=== PATIENT | female | born 1990 | race Caucasian/White ===

== ENCOUNTER 2020-06-21 09:04 | Emergency (ER) | payer SELFPAY ==
[2020-06-21] MEDS ORDERED: Ibuprofen 800 MG TAB ONE (09:44)
[2020-06-21 09:55] LABS: #Basophils 0.1 thou/uL (0.0-0.2); #Eosinphils 0.5 thou/uL (0.0-0.7); #Monocytes 0.8 thou/uL (0.11-0.59); #Neutrophils 3.8 thou/uL (1.40-6.50); %Basophils 1.4 % (0.0-1.0); %Eosinophils 6.7 % (0.0-10.0); %Lymphocytes 27.6 % (21.0-51.0); %Monocytes 10.6 % (0.0-10.0); %Neutrophils 53.7 % (42.0-75.0); Hemoglobin 13.6 g/dL (12.0-16.0); Mean Corpuscular HGB CONC 32.7 g/dL (32.0-36.0); Mean Corpuscular Hemoglobin 32.6 pg (27.0-31.0); Mean Corpuscular Volume 99.6 fL (78.0-98.0); Mean Platelet Volume 6.9 fL (7.4-10.4); Platelet Count 362 thou/uL (130-400); RBC Distribution Width 11.7 % (11.5-14.5); Red Blood Cell (RBC) Count 4.18 mill/uL (4.20-5.40); White Blood Cell (WBC) Count 7.1 thou/uL (4.8-10.8)
--- NOTE | 2020-06-21 10:45 | ULT ---
Exam: Transabdominal and endovaginal pelvic ultrasound HISTORY:Evaluate for retained products of conception. Vaginal bleeding x1 month. Elective COMPARISON: None TECHNIQUE: Transabdominal and endovaginal imaging of the pelvis is performed. Ovaries are interrogate d with grayscale, color flow, Doppler imaging and spectral wave form analysis FINDINGS: Uterus: No myometrial masses. Uterus measurin.6 x 4.9 x 5.4 cm. Endometrium: Thickened and slightly heterogeneous Endometrium diameter: 1.8 cm. . Free fluid: None Right ovary: Normal echotexture Right ovary measurement: 4.1 x 2.4 x 2.6 cm Left ovary: Normal echotexture. Left ovary measurements: 2.8 x 1.6 x 3.1 cm Ovarian Doppler: There is vascular flow to the left and right ovary. IMPRESSION: 1. Heterogeneous and thickened endometrium. Correlate with serum beta hCG for retained products of co nception.
[2020-06-21 11:17] LABS: Bilirubin Negative (Negative); Blood, Urine 3+ (Negative); Clarity Clear (Clear); Glucose, Urine (Dipstick) Normal (Negative); Ketone, Urine Negative (Negative); Leukocyte Negative Leu/uL (Negative); Nitrite Negative (Negative); Protein, Urine (Dipstick) Negative (Neg-Trace); RBC/HPF 0-3 HPF (0-3); Specific Gravity, Urine 1.006 (1.002-1.036); Squamous Epithelial 0-3 HPF (0-3); Urobilinogen Normal mg/dL (Less than 2); WBC/HPF 0-3 HPF (0-3); pH, Urine 5.5 (5.0-9.0)
[2020-06-21 11:19] LABS: Bacteria/HPF Rare-Few HPF (None Seen)
[2020-06-21 11:20] LABS: Pregnancy Test - Urine (BHCG) Negative (Negative); Pregu Control Background? CLEAR/WHITE (CLR/WHITE); Pregu Control Bar Appear? YES (CONTROL BAR); Specific Gravity 1.006 (1.002-1.036)
== END 2020-06-21 12:06 | disposition home or self-care (01) ==
LOC: ERS 09:04
DX: O03.6 Delayed or excessive hemorrhage following complete or unspecified spontaneous abortion (principal); Z71.6 Tobacco abuse counseling; F32.9 Major depressive disorder, single episode, unspecified
CPT/HCPCS: 36415; 76856; 81003; 81015; 81025; 84702; 85025; 86900; 86901; 99406

== ENCOUNTER 2020-12-16 04:21 | Emergency (ER) | payer SELFPAY ==
[2020-12-16 04:43] LABS: Bacteria/HPF None Seen HPF (None Seen); Bilirubin Negative (Negative); Blood, Urine 3+ (Negative); Clarity Turbid (Clear); Glucose, Urine (Dipstick) Normal (Negative); Ketone, Urine Negative (Negative); Leukocyte Negative Leu/uL (Negative); Nitrite Negative (Negative); Pregnancy Test - Urine (BHCG) Negative (Negative); Pregu Control Background? CLEAR/WHITE (CLR/WHITE); Pregu Control Bar Appear? YES (CONTROL BAR); Protein, Urine (Dipstick) Negative (Neg-Trace); RBC/HPF Greater than 50 HPF (0-3); Squamous Epithelial 0-3 HPF (0-3); Urobilinogen Normal mg/dL (Less than 2); pH, Urine 5.5 (5.0-9.0)
[2020-12-16 05:55] LABS: #Basophils 0.1 thou/uL (0.0-0.2); #Eosinphils 0.1 thou/uL (0.0-0.7); #Lymphocytes 2.7 thou/uL (1.20-3.40); #Monocytes 0.8 thou/uL (0.11-0.59); #Neutrophils 6.8 thou/uL (1.40-6.50); %Basophils 1.2 % (0.0-1.0); %Eosinophils 1.3 % (0.0-10.0); %Lymphocytes 25.4 % (21.0-51.0); %Monocytes 7.3 % (0.0-10.0); %Neutrophils 64.8 % (42.0-75.0); Hemoglobin 13.8 g/dL (12.0-16.0); Mean Corpuscular HGB CONC 33.1 g/dL (32.0-36.0); Mean Corpuscular Hemoglobin 33.1 pg (27.0-31.0); Mean Corpuscular Volume 99.8 fL (78.0-98.0); Mean Platelet Volume 6.6 fL (7.4-10.4); Platelet Count 395 thou/uL (130-400); RBC Distribution Width 10.7 % (11.5-14.5); Red Blood Cell (RBC) Count 4.18 mill/uL (4.20-5.40); White Blood Cell (WBC) Count 10.5 thou/uL (4.8-10.8)
[2020-12-16 06:06] LABS: INR-International Normal Ratio 1.1; PTT 28.2 sec (22.9-36.1); Prothrombin Time 14.3 sec (12.0-14.7)
[2020-12-16 06:17] LABS: ALT (SGPT) 56 U/L (8-55); AST (SGOT) 58 U/L (5-34); Albumin 4.6 g/dL (3.5-5.0); Alkaline Phosphatase 62 U/L (40-110); Anion Gap 15 mmol/L (10-20); BUN (Urea Nitrogen) 8 mg/dL (7.0-18.7); Bilirubin, Total 0.3 mg/dL (0.2-1.2); Calc. Creatinine Clearance 0 mL/min (70-130); Calcium 8.9 mg/dL (7.8-10.44); Carbon Dioxide 27 mmol/L (22-29); Chloride 105 mmol/L (98-107); Globulin 2.9 g/dL (2.4-3.5); Glucose 94 mg/dL (70-105); Potassium 4.7 mmol/L (3.5-5.1); Protein, Total 7.5 g/dL (6.0-8.3); Sodium 142 mmol/L (136-145)
--- NOTE | 2020-12-16 08:17 | CT ---
PRELIMINARY REPORT/DIRECT RADIOLOGY/EMERGENCY AFTER HOURS PROCEDURE: EXAM: CT Abdomen and Pelvis with Intravenous Contrast CLINICAL HISTORY: 30-year-old female patient presents to the ER with complaint of vaginal pain, vagin al bleeding, vaginal swelling that began this morning around 4 AM when she woke up. The patient reports that she started having cramping lower abdominal pain and when she went to the bathroom she n oticed blood when she urinated and then started passing clots. The patient states that her left labia is swollen over 4 times its normal size. Patient denies any injury, recent intercourse, nausea, vomiting, diarrhea, urinary complaints, vaginal discharge, or any other symptoms at this time. No history of similar episodes in the past. TECHNIQUE: Axial computed tomography images of the abdomen and pelvis with intravenous contrast. CONTRAST: With; ISOVUE 370,80mL COMPARISON: None provided. FINDINGS: LUNG BASES: No basilar airspace consolidation or pleural effusion. LIVER: Unremarkable. GALLBLADDER AND BILE DUCTS: Unremarkable. No calcified stone. No ductal dilation. PANCREAS: Unremarkable. SPLEEN: The spleen is poorly visualized although thought to be present along the left upper abdomen ( series 2, image 26), it is difficult to delineate from adjacent bowel. There is a small ovoid heterogeneous lesion within the left splenic fossa measuring approximately 1.7 cm which likely repres ents a small residual splenule. ADRENAL GLANDS: Unremarkable. KIDNEYS, URETERS, AND BLADDER: Unremarkable. No hydronephrosis or nephrolithiasis. No ureteral or thomas dder calculi. STOMACH AND BOWEL: No obstruction. No wall thickening. No CT evidence of colitis or acute diverticuli tis. APPENDIX: No CT evidence for appendicitis. PERITONEUM: No free fluid. No free air. LYMPH NODES: No lymphadenopathy. REPRODUCTIVE: Normal CT appearance of the uterus and ovaries. There is prominent soft tissue fat str anding along the lower central pelvis with extension to the labia majora. There is asymmetric enlargement of the left labia majora without discrete visualized abscess or fluid collection. Single punctate focus of air is present (series 2, image 87), likely interposed between the labial folds. VASCULATURE: No aortic aneurysm. BONES: No fracture or suspicious osseous abnormality. There are degenerative changes along the lumbo sacral junction. ABDOMINAL WALL AND SOFT TISSUES: Soft tissue fat stranding, as detailed above. No soft tissue mass.. IMPRESSION: Soft tissue fat stranding along the central pelvis with extension along the labia majora with asymmetric enlargement of the left labia majora. Overall these findings are favored to represent an infectious or traumatic process although no discrete abscess or fluid collection is iden tified. Alternative considerations for vascular or malignant etiologies are also possible thought to be significantly less likely. Recommend [employer] consultation. ELECTRONICALLY SIGNED BY: Garry Nascimento MD Dec 16, 2020 6:55:44 AM [employer] FINAL REPORT CT ABDOMEN AND PELVIS WITH CONTRAST: History: Vaginal pain. Comparison: None. Findings/impression: The findings and impression are concordant with the initial report. Findings are concerning for left labial cellulitis with phlegmonous changes within the left labia and possible developing abscess of the left Bartholin gland. Small punctate focus of gas in the left labia sagittal image 102. Incidentally normal spleen is absent with small volume residual splenic tissue within the splenic fos sa. Appendix is normal. Advanced for age degenerative changes at L5-S1 disc space. Transcribed Date/Time: 12/16/2020 8:27 AM
[2020-12-16] MEDS ORDERED: Iopamidol-370 76% 500 ML 1 ML ONE (11:31)
== END 2020-12-16 07:31 | disposition home or self-care (01) ==
LOC: ERS 04:21
DX: N90.89 Other specified noninflammatory disorders of vulva and perineum (principal); F17.290 Nicotine dependence, other tobacco product, uncomplicated
CPT/HCPCS: 74177; 80053; 81003; 81015; 81025; 85025; 85610; 85730; Q9967

== ENCOUNTER 2022-05-28 18:05 | Inpatient (IN) | payer SELFPAY ==
[2022-05-28] MEDS ORDERED: CEFAZOLIN 1 GM VIAL ONE (18:10)
[2022-05-28] MEDS ORDERED: Acetaminophen 500 MG TAB ONE (18:10)
[2022-05-28 18:23] LABS: Hemoglobin 12.4 g/dL (12.0-16.0); Mean Corpuscular HGB CONC 33.4 g/dL (32.0-36.0); Mean Corpuscular Hemoglobin 33.4 pg (27.0-31.0); Mean Corpuscular Volume 99.9 fL (78.0-98.0); Mean Platelet Volume 6.8 fL (7.4-10.4); Platelet Count 415 thou/uL (130-400); RBC Distribution Width 11.1 % (11.5-14.5); Red Blood Cell (RBC) Count 3.71 mill/uL (4.20-5.40); White Blood Cell (WBC) Count 10.2 thou/uL (4.8-10.8)
[2022-05-28 18:41] LABS: ALT (SGPT) 75 U/L (8-55); AST (SGOT) 102 U/L (5-34); Albumin 4.3 g/dL (3.5-5.0); Alkaline Phosphatase 77 U/L (40-110); Anion Gap 16 mmol/L (10-20); BUN (Urea Nitrogen) 7 mg/dL (7.0-18.7); Bilirubin, Total 0.6 mg/dL (0.2-1.2); Calc. Creatinine Clearance 0 mL/min (70-130); Carbon Dioxide 23 mmol/L (22-29); Chloride 102 mmol/L (98-107); Estimated GFR 115; Globulin 3.1 g/dL (2.4-3.5); Glucose 92 mg/dL (70-105); Potassium 3.6 mmol/L (3.5-5.1); Protein, Total 7.4 g/dL (6.0-8.3); Sodium 137 mmol/L (136-145)
[2022-05-28 18:44] LABS: BHCG - Serum Negative (NEGATIVE); Pregs Control Background? CLEAR/WHITE (CLR/WHITE); Pregs Control Bar Appear? YES (CONTROL BAR)
[2022-05-28 18:58] LABS: Eosinophils 5 % (0-10); Lymphocytes 27 % (21-51); MDiff Complete? YES; Macrocytosis SLIGHT = 6-15 cells (100X) (0-5/hpf); Monocytes 16 % (0-10); Neutrophil 39 % (42-75); Platelet Morphology Comment Appears Increased; Polychromasia SLIGHT = 2-3 cells (100X) (0-2/hpf); Reactive Lymphocytes 12 % (0-10); Target Cells SLIGHT = 2-5 cells (100X) (0-1/hpf)
[2022-05-28] MEDS ORDERED: Boostrix 0.5 ML (Tdap) VIAL ONE (19:09)
[2022-05-28] MEDS ORDERED: Acetaminophen 325 MG TAB PO PRN (19:35)
[2022-05-28] MEDS ORDERED: Dextrose 5% in Water 1,000 ML IV PRN ×2 (19:35→19:54)
[2022-05-28] MEDS ORDERED: Dextrose 50% Abboject 50 ML SYRINGE SLOW IVP PRN ×2 (19:35→19:54)
[2022-05-28] MEDS ORDERED: traMADol HCl 50 MG TAB PO PRN (19:35)
[2022-05-28] MEDS ORDERED: hydrALAZINE 20 MG/ML VIAL SLOW IVP PRN ×2 (19:35→19:53)
[2022-05-28] MEDS ORDERED: Ondansetron PF 4 MG/2 ML Vial IVP PRN (19:35)
[2022-05-28] MEDS ORDERED: Fentanyl 100 MCG/2 ML VIAL ONE (19:44)
[2022-05-28] MEDS ORDERED: TETANUS, DIPHTHERIA TOX,ADULT (TDVAX) 0.5 ML VIAL IM ONE (20:02)
[2022-05-28 21:39] VITALS: BMI 25.5
[2022-05-28] MEDS ORDERED: ceFAZolin 2 GM/Dextrose 50 ML 2 GM in Premix Bag 1 BAG IVPB SCH (22:00)
[2022-05-28] MEDS: Cyclobenzaprine 10 MG TAB PO PRN (22:01)
[2022-05-28] MEDS: traMADol HCl 50 MG TAB PO PRN (22:01)
[2022-05-28] MEDS: Senokot S 8.6-50 MG TAB PO SCH (22:02)
[2022-05-28] MEDS: Sodium Chloride 0.9% 1,000 ML IV SCH (22:02)
[2022-05-28] MEDS: CEFAZOLIN 2 GM in Sodium Chloride 0.9% 100 ML IVPB SCH (22:02)
[2022-05-29 01:32] LABS: SARS-CoV-2 NAA Rapid Test Not Detected (NotDetected)
[2022-05-29] MEDS: traMADol HCl 50 MG TAB PO PRN (04:15)
[2022-05-29] MEDS: CEFAZOLIN 2 GM in Sodium Chloride 0.9% 100 ML IVPB SCH ×3 (05:30→20:28)
[2022-05-29] MEDS: Morphine 2 MG/ML VIAL SLOW IVP PRN ×3 (05:37→20:26)
[2022-05-29 07:13] LABS: Band 2 % (5-11); Eosinophils 3 % (0-10); Hemoglobin 12.1 g/dL (12.0-16.0); Lymphocytes 17 % (21-51); MDiff Complete? YES; Mean Corpuscular HGB CONC 33.1 g/dL (32.0-36.0); Mean Corpuscular Hemoglobin 33.7 pg (27.0-31.0); Mean Platelet Volume 6.9 fL (7.4-10.4); Monocytes 15 % (0-10); Neutrophil 62 % (42-75); Platelet Count 432 thou/uL (130-400); RBC Distribution Width 11.1 % (11.5-14.5); Reactive Lymphocytes 1 % (0-10); Red Blood Cell (RBC) Count 3.59 mill/uL (4.20-5.40); White Blood Cell (WBC) Count 11.7 thou/uL (4.8-10.8)
[2022-05-29 07:18] LABS: Anion Gap 12 mmol/L (10-20); BUN (Urea Nitrogen) 8 mg/dL (7.0-18.7); Calc. Creatinine Clearance 116 mL/min (70-130); Calcium 8.9 mg/dL (7.8-10.44); Carbon Dioxide 26 mmol/L (22-29); Chloride 106 mmol/L (98-107); Estimated GFR 106; Glucose 91 mg/dL (70-105); Potassium 3.9 mmol/L (3.5-5.1); Sodium 140 mmol/L (136-145)
[2022-05-29] MEDS: Sodium Chloride 0.9% 1,000 ML IV SCH ×2 (07:24→12:28)
[2022-05-29] MEDS ORDERED: traMADol HCl 50 MG TAB PO PRN (09:50)
[2022-05-29] MEDS: Senokot S 8.6-50 MG TAB PO SCH ×2 (10:08→20:28)
[2022-05-29] MEDS: Polyethylene Glycol 3350 17 GM Packet PO SCH (10:08)
[2022-05-29] MEDS: traMADol HCl 50 MG TAB PO SCH ×3 (12:28→22:11)
[2022-05-29] MEDS ORDERED: Bacitracin Zinc Ointment 30 gm TUBE ONE (13:58)
[2022-05-29] MEDS ORDERED: Xylocaine 1% w/ Epi 1:100K 10 ML VIAL ONE (13:58)
[2022-05-29] MEDS ORDERED: Neomycin-Polymyxin 1 ML AMP ONE ×2 (13:58→14:52)
[2022-05-29] MEDS ORDERED: Sodium Chloride 0.9% 100 ML ONE (14:08)
[2022-05-29] MEDS ORDERED: CEFAZOLIN 2 GM VIAL ONE (14:08)
[2022-05-29] MEDS: Ibuprofen 200 MG TAB PO SCH ×2 (14:09→20:27)
[2022-05-29] MEDS ORDERED: HYDROmorphone 2 MG/ML VIAL ONE ×2 (14:10→16:30)
[2022-05-29] MEDS ORDERED: fentaNYL Citrate/PF 100 MCG/2 ML SYRINGE ONE ×4 (14:10→18:35)
[2022-05-29] MEDS ORDERED: Famotidine/PF 20 mg/2ml Vial ONE (14:11)
[2022-05-29] MEDS ORDERED: PROPOFOL 200 MG/20 ML VIAL ONE (14:18)
[2022-05-29] MEDS ORDERED: Lidocaine 1% PF 5 ML VIAL ONE (14:18)
[2022-05-29] MEDS ORDERED: Rocuronium Bromide 10 MG/ML (10ML VIAL) ONE (14:18)
[2022-05-29] MEDS ORDERED: Ondansetron PF 4 MG/2 ML Vial ONE (14:18)
[2022-05-29] MEDS ORDERED: Succinylcholine 200 MG/10 ml SYRINGE FS ONE (14:18)
[2022-05-29] MEDS ORDERED: Oxymetazoline HCl 0.05% (30 ML BOT) ONE (14:41)
[2022-05-29] MEDS ORDERED: Midazolam HCl 2 mg/2 ml Vial ONE (16:41)
[2022-05-29] MEDS ORDERED: HYDROmorphone 2 MG/ML VIAL SLOW IVP PRN (16:51)
[2022-05-29] MEDS ORDERED: Meperidine HCl/PF 25 MG/ML VIAL SLOW IVP PRN (16:51)
[2022-05-29] MEDS ORDERED: Promethazine HCl 25 MG/ML VIAL IM PRN (16:51)
[2022-05-29] MEDS ORDERED: Promethazine HCl 25 MG/ML VIAL IVPB PRN (16:51)
[2022-05-29] MEDS ORDERED: Ondansetron HCl/PF 4 MG/2 ML Vial IVP PRN (16:51)
[2022-05-29] MEDS ORDERED: HYDROcodone/Acetaminophen 5/325 mg Tablet PO PRN ×2 (17:06→19:28)
[2022-05-29] MEDS ORDERED: HYDROmorphone 0.5 MG/0.5 ML SYRINGE ONE ×4 (17:15→18:10)
[2022-05-29] MEDS ORDERED: Lactated Ringer's 1,000 ML IV SCH (17:15)
[2022-05-29] MEDS ORDERED: Dexamethasone 4 mg/ml Vial ONE (18:04)
[2022-05-29] MEDS: Dexamethasone 4 mg/ml Vial SLOW IVP SCH (18:08)
[2022-05-29] MEDS ORDERED: Promethazine HCl 25 MG/ML VIAL ONE (18:16)
[2022-05-29] MEDS: Bacitracin 1 PK TOP SCH (20:28)
[2022-05-29] MEDS ORDERED: Tetrahydrozoline 0.05% OPTH 15 ML BOT EA EYE SCH (21:00)
[2022-05-29] MEDS: Tetrahydrozoline 0.05% OPTH 15 ML BOT L EYE SCH (22:03)
[2022-05-29] MEDS: Cyclobenzaprine 10 MG TAB PO PRN (22:11)
[2022-05-29] MEDS: Acetaminophen 500 MG TAB PO SCH (22:12)
[2022-05-30] MEDS: Morphine 2 MG/ML VIAL SLOW IVP PRN ×2 (01:48→05:33)
[2022-05-30] MEDS: Dexamethasone 4 mg/ml Vial SLOW IVP SCH ×2 (01:49→09:11)
[2022-05-30] MEDS: traMADol HCl 50 MG TAB PO SCH ×2 (05:33→11:20)
[2022-05-30] MEDS: CEFAZOLIN 2 GM in Sodium Chloride 0.9% 100 ML IVPB SCH (05:33)
[2022-05-30] MEDS: Ibuprofen 200 MG TAB PO SCH (05:34)
[2022-05-30] MEDS: Acetaminophen 500 MG TAB PO SCH ×2 (05:34→11:20)
[2022-05-30] MEDS: Senokot S 8.6-50 MG TAB PO SCH (09:11)
[2022-05-30] MEDS: Polyethylene Glycol 3350 17 GM Packet PO SCH (09:11)
[2022-05-30] MEDS: Bacitracin 1 PK TOP SCH (09:11)
[2022-05-30] MEDS: Tetrahydrozoline 0.05% OPTH 15 ML BOT L EYE SCH (09:12)
[2022-05-30] MEDS ORDERED: Fluorescein Opthalmic Strip EA EYE SCH (09:59)
[2022-05-30] MEDS ORDERED: Proparacaine 0.5% Opth 15 ML BOT EA EYE SCH (10:00)
[2022-05-30 11:34] VITALS: BP 140/77; TEMP 98.2
[2022-05-30] MEDS ORDERED: Ketorolac Tromethamine 0.5% Ophth Soln 3 ml Bottle L EYE SCH (13:00)
== END 2022-05-30 14:30 | disposition home or self-care (01) | DRG 142 ==
LOC: ERS 18:05 → SURG B 19:56
PROVIDERS: ADMIT Surgery; ATTEND Surgery
PROC: 0NSB04Z Reposition Nasal Bone with Internal Fixation Device, Open Approach (ICD-10-PCS; principal; 2022-05-29)
PROC: 0JQ10ZZ Repair Face Subcutaneous Tissue and Fascia, Open Approach (ICD-10-PCS; 2022-05-29)
DX: S02.2XXB Fracture of nasal bones, initial encounter for open fracture (principal); Z20.822 Contact with and (suspected) exposure to COVID-19; Z23 Encounter for immunization; Z90.81 Acquired absence of spleen; F17.210 Nicotine dependence, cigarettes, uncomplicated; F90.9 Attention-deficit hyperactivity disorder, unspecified type; H57.89 Other specified disorders of eye and adnexa; W55.12XA Struck by horse, initial encounter; Z79.899 Other long term (current) drug therapy
CPT/HCPCS: 70450; 70486; 80048; 80053; 84703; 85025; 90715; G0390; J0690; J1100; J1170; J2250; J2270; J2405; J2550; J2704; J3010; J3490; J7050; S0028; U0002